=== PATIENT | female | born 1970 | race African-American/Black ===

== ENCOUNTER 2020-08-04 05:20 | Day surgery (SDC) | payer BC, OTHER ==
[2020-08-03 11:27] VITALS: BMI 28.1
[2020-08-04 08:45] LABS: HEMATOCRIT 38.4 % (32.4-45.2); MCH 22.9 pg (25.7-33.7); MCHC 31.1 g/dl (32.0-36.0); MEAN CELL VOLUME 73.5 fl (80-96); MEAN PLT VOLUME 8.6 fl (7.5-11.1); PLATELET COUNT 257 K/MM3 (134-434); RBC 5.23 M/mm3 (3.60-5.2); RDW 15.5 % (11.6-15.6); WHITE BLOOD COUNT 4.5 K/mm3 (4.0-10.0)
[2020-08-04 08:52] LABS: INR 1.02 (0.83-1.09); PROTHROMBIN TIME (PATIENT) 12.3 SEC (9.7-13.0)
[2020-08-04 09:01] LABS: POTASSIUM 3.7 mmol/L (3.5-5.1)
[2020-08-04 09:02] LABS: CALCIUM 9.3 mg/dL (8.5-10.1)
[2020-08-04 09:03] LABS: ALBUMIN 3.7 g/dl (3.4-5.0)
[2020-08-04 09:08] LABS: BILIRUBIN,TOTAL 0.4 mg/dL (0.2-1); BLOOD UREA NITROGEN 12.6 mg/dL (7-18); TOT PROT 7.1 g/dl (6.4-8.2)
[2020-08-04] MEDS ORDERED: MIDAZOLAM HCL 2 MG/2 ML SINGLE DOSE VIAL ONE ×2 (11:40)
[2020-08-04] MEDS ORDERED: SUCCINYLCHOLINE CHLORIDE 200 MG/10 ML SYRINGE ONE (11:45)
[2020-08-04] MEDS ORDERED: PROPOFOL 20 ML ONE (11:45)
[2020-08-04] MEDS ORDERED: LIDOCAINE 1%/EPI 1:100000 (20 ML MULTI DOSE VIAL) IJ ONE (11:52)
[2020-08-04] MEDS ORDERED: BUPIVACAINE HCL/PF 0.5% (5 MG/ML) 30 ML VIAL IJ ONE (11:52)
[2020-08-04] MEDS ORDERED: ONDANSETRON 4 MG/2 ML VIAL IVPUSH PRN (12:12)
[2020-08-04] MEDS ORDERED: PROMETHAZINE HCL 25 MG/1 ML VIAL IVPUSH PRN (12:12)
[2020-08-04] MEDS ORDERED: oxyCODONE HCL 5 MG TABLET PO PRN (12:12)
[2020-08-04] MEDS ORDERED: LACTATED RINGERS SOLUTION 1,000 ML IV SCH (12:15)
[2020-08-04 13:21] VITALS: BP 120/70; PULSE 80; TEMP 98
== END 2020-08-04 13:10 | disposition home or self-care (01) ==
LOC: JASU-SURG 05:20
PROVIDERS: ATTEND Surgery
PROC: 0HB4XZZ Excision of Neck Skin, External Approach (ICD-10-PCS; principal; 2020-08-04 10:00)
DX: L72.0 Epidermal cyst (principal)
CPT/HCPCS: 36415; 80053; 84703; 85027; 85610; 88304-TC; 93005; 93010